=== PATIENT | female | born 1970 | race Caucasian/White ===

== ENCOUNTER 2016-06-06 11:52 | Emergency (ER) | payer BC ==
[~2016-06-06] VITALS: Ht 162.6 cm; Wt 81.8 kg
[~2016-06-06 11:52] MED LIST: ATIVAN 0.50.5 MG/TAB PO; MOTRIN 800800 MG/TAB PO; PAMELOR 25MG25 MG PO; PERCOCET 325 MG1 TA2 PO; PREDNISONE20 MG PO; ULTRAM 50MG TAB50 MG PO; VIBRAMYCININJ; ZOFRAN 4MG T4 MG/TAB PO
[2016-06-06 12:06] VITALS: TEMP 98.4
[2016-06-06 14:20] LABS: BASO # 0.1 (0.0-0.2); BASO % 1.1 % (0.0-2.0); EOS # 0.1 (0.0-0.7); EOS % 2.2 % (0-4.0); HEMATOCRIT 37.9 % (37.0-47.0); HEMOGLOBIN 12.8 g/dl (12.5-16.0); LYMPH # 2.8 (1.2-3.4); LYMPH % 43.8 % (20.0-51.0); MEAN CELL VOLUME 93 fl (80.0-100.0); MEAN CORPUSCULAR HEMOGLOBIN 31 pg (27.0-31.0); MEAN CORPUSCULAR HGB CONC 34 g/dl (33.0-37.0); MEAN PLATELET VOLUME 9.2 fl (7.4-10.4); MONO # 0.4 (0.1-0.6); MONO % 6.4 % (1.7-9.3); PLATELET COUNT 250 K/mm3 (130-400); RED BLOOD COUNT 4.09 M/mm3 (4.10-5.30); REDCELL DISTRIBUTION WIDTH-CV 12.7 % (11.5-14.5); WHITE BLOOD COUNT 6.4 K/mm3 (4.8-10.8)
[2016-06-06 14:41] LABS: ERYTHROCYTE SEDIMENTATION RATE 23 mm/hr (0-20)
[2016-06-06 15:54] VITALS: BP 138/78; PULSE 64
== END 2016-06-06 15:57 | disposition home or self-care (01) ==
LOC: COL.ER 11:52
PROVIDERS: Physician Assistant
DX: G43.909 Migraine, unspecified, not intractable, without status migrainosus (principal); F17.210 Nicotine dependence, cigarettes, uncomplicated
CPT/HCPCS: J1170; J1200; J1885; J2765; J7030

== ENCOUNTER 2016-06-08 06:44 | Emergency (ER) | payer BC ==
[~2016-06-08] VITALS: Ht 162.6 cm; Wt 81.8 kg
[2016-06-08 06:47] VITALS: TEMP 98.3
[2016-06-08] MEDS ORDERED: VITAMIN D 50,1.25 MG PO (06:52)
[2016-06-08] MEDS ORDERED: B-12 100 MCG PO (06:52)
[2016-06-08] MEDS ORDERED: MAGNESIUM CHELA27 MG PO (06:52)
[2016-06-08] MEDS ORDERED: PHENERGAN 25 TA25 MG PO (08:49)
[2016-06-08 09:58] VITALS: BP 98/52; PULSE 65
== END 2016-06-08 09:57 | disposition home or self-care (01) ==
LOC: COL.ER 06:44
DX: R51 Headache (principal); R40.2412 Glasgow coma scale score 13-15, at arrival to emergency department
CPT/HCPCS: J1200; J1885; J2270; J2550; J7030

== ENCOUNTER 2016-06-10 11:03 | Outpatient (CLI) | payer BC ==
[~2016-06-10] VITALS: Ht 162.6 cm; Wt 81.8 kg
[~2016-06-10 11:03] MED LIST changes: +B-12 100 MCG PO; +MAGNESIUM CHELA27 MG PO; +PHENERGAN 25 TA25 MG PO; +VITAMIN D 50,1.25 MG PO
[2016-06-10 11:16] VITALS: BP 114/67; PULSE 75; TEMP 98.4
== END 2016-06-10 14:21 | disposition home or self-care (01) ==
LOC: EUO 11:03
DX: G43.819 Other migraine, intractable, without status migrainosus (principal)
CPT/HCPCS: J3420; J3475; J7030

== ENCOUNTER 2016-06-12 10:43 | Emergency (ER) | payer BC ==
[~2016-06-12] VITALS: Ht 162.6 cm; Wt 81.8 kg
[2016-06-12 10:44] VITALS: BP 149/72; TEMP 99.1
[2016-06-12] MEDS ORDERED: MAGNESIUM250 M1 PO (10:49)
[2016-06-12] MEDS ORDERED: COMPAZINE 110 MG/TAB PO (13:05)
[2016-06-12] MEDS ORDERED: TORADOL 10MG TA10 MG PO (13:05)
[2016-06-12 13:25] VITALS: PULSE 87
== END 2016-06-12 13:27 | disposition home or self-care (01) ==
LOC: COL.ER 10:43
DX: R51 Headache (principal)
CPT/HCPCS: J1100; J1200; J1885; J2060; J2550; J7030

== ENCOUNTER 2016-08-11 16:35 | Emergency (ER) | payer BC ==
[~2016-08-11] VITALS: Ht 162.6 cm; Wt 81.8 kg
[~2016-08-11 16:35] MED LIST changes: +COMPAZINE 110 MG/TAB PO; +MAGNESIUM250 M1 PO; +TORADOL 10MG TA10 MG PO
[2016-08-11 16:36] VITALS: TEMP 97.8
[2016-08-11] MEDS ORDERED: TOPAMAX50 MG PO (16:59)
[2016-08-11] MEDS ORDERED: CLARITIN 1010 MG/TAB PO (16:59)
[2016-08-11] MEDS ORDERED: VITAMIN B-2 100MG PO (16:59)
[2016-08-11] MEDS ORDERED: THE MEDICINE S200 M2 PO (17:00)
[2016-08-11] MEDS ORDERED: IMITREX 6M6 MG/0.5 M SQ (17:00)
[2016-08-11 19:33] VITALS: BP 99/63; PULSE 64
== END 2016-08-11 19:40 | disposition home or self-care (01) ==
LOC: COL.ER 16:35
DX: G43.909 Migraine, unspecified, not intractable, without status migrainosus (principal); F17.210 Nicotine dependence, cigarettes, uncomplicated
CPT/HCPCS: J1100; J1200; J1885; J2060; J2550; J7030

== ENCOUNTER 2017-04-24 15:29 | Emergency (ER) | payer BC ==
[~2017-04-24] VITALS: Ht 162.6 cm; Wt 81.8 kg
[~2017-04-24 15:29] MED LIST changes: +CLARITIN 1010 MG/TAB PO; +IMITREX 6M6 MG/0.5 M SQ; +THE MEDICINE S200 M2 PO; +TOPAMAX50 MG PO; +VITAMIN B-2 100MG PO
[2017-04-24 15:32] VITALS: TEMP 98.5
[2017-04-24 17:28] LABS: BASO # 0.1 (0.0-0.2); BASO % 0.8 % (0.0-2.0); EOS # 0.1 (0.0-0.7); EOS % 0.8 % (0-4.0); GRAN # 2.7 (1.4-6.5); GRAN % 36.5 % (42.2-75.2); HEMATOCRIT 37.9 % (37.0-47.0); HEMOGLOBIN 12.5 g/dl (12.5-16.0); MEAN CELL VOLUME 98 fl (80.0-100.0); MEAN CORPUSCULAR HEMOGLOBIN 32 pg (27.0-31.0); MEAN CORPUSCULAR HGB CONC 33 g/dl (33.0-37.0); MEAN PLATELET VOLUME 9.4 fl (7.4-10.4); MONO # 0.6 (0.1-0.6); MONO % 8.6 % (1.7-9.3); PLATELET COUNT 269 K/mm3 (130-400); RED BLOOD COUNT 3.88 M/mm3 (4.10-5.30); WHITE BLOOD COUNT 7.5 K/mm3 (4.8-10.8)
[2017-04-24 17:33] LABS: ADJUSTED CALCIUM 9.2 mg/dL (8.4-10.2); ALBUMIN 4.3 gm/dL (3.5-5.0); BILIRUBIN,TOTAL 0.4 mg/dL (0.0-1.0); C-REACTIVE PROTEIN 1.1 mg/dL (0.0-0.9); CALCIUM 9.4 mg/dL (8.4-10.2); CREATININE, serum 0.82 mg/dL (0.52-1.25); POTASSIUM 3.8 mmol/L (3.4-5.0); TOTAL PROTEIN 7.5 gm/dL (6.4-8.2)
[2017-04-24 18:02] LABS: COLLECTION METHOD CLEAN CATCH
[2017-04-24 18:08] LABS: MUCOUS Present /lpf; PH 5 (5-8); SQUAMOUS EPITHELIAL None Seen /hpf; URINE APPEARANCE Clear; URINE BACTERIA None Seen /hpf; URINE BILIRUBIN Negative (NEGATIVE); URINE BLOOD 2+ (NEGATIVE); URINE COLOR Yellow; URINE GLUCOSE Negative (NEGATIVE); URINE KETONE Negative (NEGATIVE); URINE LEUKOCYTE ESTERASE Negative (NEGATIVE); URINE PROTEIN(semi-quant) Negative (NEGATIVE); URINE UROBILINOGEN Negative (NEGATIVE); URINE WBC 0-2 /hpf
[2017-04-24] MEDS ORDERED: NORCO 325 MG-51 TAB PO (20:19)
[2017-04-24 20:30] VITALS: BP 106/78; PULSE 63
== END 2017-04-24 20:39 | disposition home or self-care (01) ==
LOC: COL.ER 15:29
PROVIDERS: Nurse Practitioner
DX: R10.11 Right upper quadrant pain (principal); G43.909 Migraine, unspecified, not intractable, without status migrainosus; F17.210 Nicotine dependence, cigarettes, uncomplicated; Z98.51 Tubal ligation status
CPT/HCPCS: J1170; J2405; J7030

== ENCOUNTER → 2017-06-07 | Outpatient (CLI) | payer BC ==
[~2017-06-07] MED LIST changes: +NORCO 325 MG-51 TAB PO
== END ==
LOC: COL.RAD 10:03
DX: R11.10 Vomiting, unspecified (principal); R19.5 Other fecal abnormalities; R10.9 Unspecified abdominal pain
CPT/HCPCS: A9537; J2805